=== PATIENT | female | born 1985 | race African-American/Black ===

== ENCOUNTER 2021-08-19 10:41 | Emergency (ER) | payer OTHER ==
[~2021-08-19 10:41] MED LIST: COLACE100 MG PO; FEOSOL325 MG PO; MOTRIN600 MG PO; PRENATAL TABLE1 EAC1 PO
[2021-08-19 13:48] LABS: INFLUENZA A NAA NEGATIVE (NEGATIVE)
[2021-08-19 13:52] LABS: CORONAVIRUS 2019 SARS-COV-2 POSITIVE (NEGATIVE)
== END 2021-08-19 14:11 | disposition home or self-care (01) ==
LOC: FER 10:41
PROVIDERS: Emergency Medicine
DX: U07.1 COVID-19 (principal); F17.210 Nicotine dependence, cigarettes, uncomplicated
CPT/HCPCS: 99283; U0002